=== PATIENT | male | born 1990 | race Caucasian/White ===

== ENCOUNTER → 2021-09-24 | Day surgery (SDC) | payer OTHER ==
[2021-09-23 12:27] VITALS: BMI 38.0
[~2021-09-24] MED LIST: LIDOCAINE 1% (10MG/ML) FOR IV START INTRADERMA PRN; LIDOCAINE 2% INJ 20 MG/ML (2 ML VIAL) ONE; MIDAZOLAM 2 MG/2 ML VIAL ONE; PROPOFOL 10 MG/ML 20 ML VIAL IV ONE
[2021-09-24 10:40] VITALS: TEMP 97.9
[2021-09-24] MEDS: LACTATED RINGERS 1,000 ML IV SCH ×2 (10:51→11:42)
--- NOTE | 2021-09-24 11:53 | P.PCN ---
Date of Procedure: 09/24/21 Procedure(s) Performed: BRIEF HISTORY: Patient is a 31-year-old, pleasant, white female scheduled for an upper endoscopy as a part of evaluation of GERD of many years duration. Recently has been having worsening symptoms despite being on omeprazole 20 mg [facility]. PROCEDURE PERFORMED: Esophagogastroduodenoscopy with biopsy. PREOPERATIVE DIAGNOSIS: Long-standing history of GERD. IV sedation per anesthesia. PROCEDURE: After informed consent was obtained, the patient was brought into the endoscopy unit. IV sedation was administered by Anesthesia under continuous monitoring. Initially the Olympus GIF-140 video endoscope was inserted into the mouth. Esophagus intubated without any difficulty. It was gradually advanced into the stomach and duodenum and carefully examined. The bulb and the second part of the duodenum appeared normal. The scope at this time was withdrawn to the stomach, adequately insufflated with air, and upon careful examination, mucosa of the antrum, body, cardia and the fundus appeared normal. The scope was then withdrawn into the esophagus. The GE junction was located at 39 cm from the incisors. Small hiatal hernia noted. There were linear erosions in the distal esophagus consistent with LA grade B reflux esophagitis. There was a 5 mm polyp at the GE junction that was removed by biopsy. Rest of esophagus appeared normal and the patient tolerated the procedure well. IMPRESSION: 1. A 5 mm GE junction polyp status post biopsy. 2. A few superficial erosions at the GE junction consistent with LA grade B reflux esophagitis 3. Small hiatal hernia. RECOMMENDATIONS: The findings of this examination were discussed with the patient as well as his family. Follow with biopsy results. He was advised to increase omeprazole to 20 mg twice daily for 8 weeks and follow antireflux measures. 20 mg daily and follow antireflux measures..
[2021-09-24 12:24] VITALS: BP 133/85; PULSE 60; RESP 17
== END ==
LOC: ORWHC2ENDO 09:28
PROVIDERS: ATTEND Internal Medicine Gastroenterology
DX: K21.00 Gastro-esophageal reflux disease with esophagitis, without bleeding (principal); K22.82 Esophagogastric junction polyp; K22.10 Ulcer of esophagus without bleeding; K25.9 Gastric ulcer, unspecified as acute or chronic, without hemorrhage or perforation; K44.9 Diaphragmatic hernia without obstruction or gangrene; F17.220 Nicotine dependence, chewing tobacco, uncomplicated; G43.909 Migraine, unspecified, not intractable, without status migrainosus; Z79.899 Other long term (current) drug therapy
CPT/HCPCS: 88305; 88312; 43239; J2250; J2704; J2001